=== PATIENT | male | born 1955 | race Caucasian/White ===

== ENCOUNTER 2016-07-26 10:32 | Outpatient (CLI) | payer OTHER | END 2016-07-26 10:33 | disposition home or self-care (01) | DX: M19.042 Primary osteoarthritis, left hand (principal); M19.041 Primary osteoarthritis, right hand ==

== ENCOUNTER 2017-04-08 14:24 | Outpatient (CLI) | payer OTHER ==
[2017-04-08 14:58] LABS: CREATININE 1.1 mg/dL (0.6-1.2)
[2017-04-08] MEDS ORDERED: IOPAMIDOL-300 50 ML VIAL ONE (15:40)
[2017-04-08] MEDS ORDERED: IOPAMIDOL-300 100 ML VIAL ONE (16:24)
[2017-04-08] MEDS ORDERED: IOPAMIDOL-300 100 ML VIAL IVP ONE (17:33)
[2017-04-08] MEDS ORDERED: IOPAMIDOL-300 50 ML VIAL PO ONE (17:33)
--- NOTE | 2017-04-09 09:29 | CT Report ---
CT ABDOMEN AND PELVIS WITH CONTRAST: 04/08/2017 CLINICAL INDICATION: Abdominal pain. TECHNIQUE: Axial CT images of the abdomen and pelvis were obtained with 100 mL Isovue-300 intravenou sly as well as oral contrast. No previous CT is available for comparison. In accordance with CT protocol optimization, one or more of the following dose reduction techniques w ere utilized for this exam: automated exposure control, adjustment of mA and/or KV based on patient size, or use of iterative reconstructive technique. FINDINGS: Limited evaluation of the lung bases demonstrates minimal atelectasis. Abdomen: The liver, spleen, pancreas, and adrenal glands are unremarkable. The kidneys demonstrate cortical cysts. No hydronephrosis or solid renal lesion is present. The gallbladder is not dilated. No bowel dilatation, free gas, or free fluid is present. No abdominal adenopathy is seen. Pelvis: A few scattered sigmoid diverticula are noted, without CT evidence of diverticulitis. No pe lvic adenopathy or free fluid is present. There is a small right inguinal hernia present, containing fat, without evidence of bowel herniation. Osseous structures demonstrate degenerative changes. IMPRESSION: SCATTERED DIVERTICULOSIS, WITHOUT CT EVIDENCE OF DIVERTICULITIS. SMALL RIGHT INGUINAL H ERNIA, CONTAINING FAT. JOB #: [id number] EXT JOB #:[id number]
== END 2017-04-08 14:25 | disposition home or self-care (01) ==
LOC: LAB 14:24
PROVIDERS: ATTEND Internal Medicine
DX: K57.90 Diverticulosis of intestine, part unspecified, without perforation or abscess without bleeding (principal); K40.90 Unilateral inguinal hernia, without obstruction or gangrene, not specified as recurrent
CPT/HCPCS: 36415; 74177; 82565; Q9967

== ENCOUNTER 2020-04-21 10:01 | Outpatient (CLI) | payer MEDICARE, OTHER | END 2020-04-21 10:02 | disposition home or self-care (01) | LOC: COV 10:01 | PROVIDERS: ATTEND Family Medicine | DX: Z20.828 Contact with and (suspected) exposure to other viral communicable diseases (principal) ==